=== PATIENT | male | born 1940 | race Caucasian/White ===

== ENCOUNTER → 2017-02-27 | Outpatient (CLI) | payer OTHER, MEDICARE ==
[~2017-02-27] MED LIST: ALBUTEROL SULF8.5 GM IH; ANTIVERT25 MG PO; ASCORBIC ACID500 M3 PO; ASPIR-LOW81 M1 PO; ASPIR-LOW81 MG PO; AVELOX400 MG; AVODART0.5 MG PO; BACTRIM,SEPT1 TABLET PO; CLOPIDOGREL75 MG; CO Q-10100 MG PO; COLACE100 MG PO; COMBIVENT200 INHALA; COUMADIN2 MG PO; COUMADIN5 MG PO; CRESTOR5 MG PO; CYANOCOBALAM1000 MCG PO; DIOVAN320 MG; DIOVAN320 MG PO; ERGOCALCIF50000 UNIT PO; FLAGYL500 MG PO; FLOMAX0.4 MG PO; FOLIC ACID1 MG PO; FUROSEMIDE20 MG PO; GABAPENTIN300 MG PO; GABAPENTIN400 MG PO; GABAPENTIN600 MG PO; GLIPIZIDE; GLIPIZIDE10 MG PO; GLUCOTROL XL2.5 MG PO; HYDROCHLOROTHIA25 MG; HYDROCHLOROTHIA25 MG PO; HYDROCODONE-CH473 ML; IMODIUM MS REL1 EACH PO; JANUVIA100 MG PO; KEFLEX500 MG PO; LEVOFLOXACIN750 MG PO; LIDOCAINE700 MG TD; LISINOPRIL5 MG; LISINOPRIL5 MG PO; LIVALO2 MG PO; LOPRESSOR50 MG PO; LOVENOX100 MG/1 M SC; MEN'S MULTI-VI1 EACH PO; METOPROLOL TART25 MG PO; METOPROLOL TART50 MG; MULTIPLE VITAM1 EAC1 PO; MULTIVITAMIN1 EAC2 PO; NITROSTAT0.4 MG; NITROSTAT0.4 MG SL; NOVOLOG100 UNIT/1 SC; OXYCODONE HCL10 MG PO; OXYCODONE HCL15 MG PO; OXYCODONE HCL5 MG; OXYCODONE HCL5 MG PO; PLAVIX75 MG PO; PREDNISONE50 MG PO; PRINIVIL5 MG PO; ROLAIDS PO; ROXICODONE15 MG PO; SENNA-EXTRA17.2 MG PO; TESSALON PERLE100 MG PO; TOPROL XL25 MG PO; TRICOR145 MG PO; VITAMIN B-6100 MG PO; XARELTO20 MG PO; ZITHROMAX Z-PA250 MG PO
== END | disposition home or self-care (01) ==
LOC: AMB 12:17
PROC: 0HJPXZZ Inspection of Skin, External Approach (ICD-10-PCS; principal; 2017-02-27)
DX: Z48.817 Encounter for surgical aftercare following surgery on the skin and subcutaneous tissue (principal); D04.61 Carcinoma in situ of skin of right upper limb, including shoulder; C44.612 Basal cell carcinoma of skin of right upper limb, including shoulder; L57.0 Actinic keratosis
CPT/HCPCS: 99212

== ENCOUNTER 2018-02-25 17:34 | Emergency (ER) | payer OTHER, MEDICARE ==
[~2018-02-25] VITALS: Ht 165.1 cm; Wt 100.0 kg
[2018-02-25 20:25] LABS: HEMATOCRIT 41.8 % (38.0-50.0); HEMOGLOBIN 15.1 G/DL (12.5-16.6); MCH 35.1 PG (29.0-34.0); MCHC 36.1 G/DL (30.0-36.0); MCV 97.2 FL (86-99); PLATELET COUNT 67 K/uL (156-360); RBC DIS.WIDTH-CV 15.7 % (11.8-14.6); RBC DIS.WIDTH-SD 55.8 % (39-53); WHITE BLOOD COUNT 7.4 K/uL (4.1-10.2)
[2018-02-25 20:33] LABS: ALBUMIN 3.4 g/dL (3.2-4.8)
[2018-02-25 20:34] LABS: CHLORIDE 100 mEq/L (99-109); SODIUM 137 mEq/L (136-147)
[2018-02-25 20:36] LABS: GLUCOSE 262 mg/dL (70-99); TOTAL PROTEIN 7.1 g/dL (6.4-8.3)
[2018-02-25 20:37] LABS: POTASSIUM 3.9 mEq/L (3.7-5.4)
[2018-02-25 20:38] LABS: TOTAL BILIRUBIN 2.1 mg/dL (0.0-1.0)
[2018-02-25 20:39] LABS: ALKALINE PHOSPHATASE 138 IU/L (3-129)
[2018-02-25 20:40] LABS: CREATININE 0.8 mg/dL (0.6-1.3); GFR ESTIMATE (CALCULATED) > 59 mL/min/ (58.99-99999)
[2018-02-25 20:41] LABS: AST (GOT) 72 IU/L (2-34); UREA NITROGEN (BUN) 9 mg/dL (9-23)
[2018-02-25 20:43] LABS: ALT (GPT) 30 IU/L (3-49)
[2018-02-25 21:00] LABS: APPEARANCE CLEAR ((CLEAR)); BILIRUBIN NEGATIVE; BLOOD MODERATE; COLOR YELLOW ((YELLOW)); GLUCOSE (STRIP) >=500; KETONES NEGATIVE; LEUKOCYTES NEGATIVE; NITRITE NEGATIVE; PROTEIN (STRIP) NEGATIVE; SPECIFIC GRAVITY 1.011 (1.000-1.030)
[2018-02-25 21:08] LABS: BACTERIA NONE SEEN /HPF; EPITHELIAL CELLS NONE SEEN /HPF; MUCUS NONE SEEN /LPF; RED BLOOD CELLS 0-5 /HPF (0-5); UCUL ADDED? NO; WHITE BLOOD CELLS 0-5 /HPF (0-5)
[2018-02-25 22:02] LABS: LIPASE 67 U/L (1.0-51.0)
[2018-02-26 00:16] VITALS: BP 142/81
== END 2018-02-26 00:17 | disposition home or self-care (01) ==
LOC: EME 17:34
PROVIDERS: Physician Assistant
DX: R41.0 Disorientation, unspecified (principal); K80.20 Calculus of gallbladder without cholecystitis without obstruction; J20.9 Acute bronchitis, unspecified; J44.0 Chronic obstructive pulmonary disease with (acute) lower respiratory infection; M79.604 Pain in right leg; M79.89 Other specified soft tissue disorders; I10 Essential (primary) hypertension; E11.9 Type 2 diabetes mellitus without complications; E78.5 Hyperlipidemia, unspecified; F32.9 Major depressive disorder, single episode, unspecified; F41.9 Anxiety disorder, unspecified; I25.2 Old myocardial infarction; Z95.1 Presence of aortocoronary bypass graft; Z85.828 Personal history of other malignant neoplasm of skin; Z87.891 Personal history of nicotine dependence; Z79.84 Long term (current) use of oral hypoglycemic drugs; Z88.6 Allergy status to analgesic agent; Z88.8 Allergy status to other drugs, medicaments and biological substances; Z91.041 Radiographic dye allergy status; Z91.040 Latex allergy status
CPT/HCPCS: 70450; 71046; 76705; 80053; 81003; 83690; 83880; 85027; 93005; 93971; 99281; 99285

== ENCOUNTER 2018-05-29 16:05 | Emergency (ER) | payer OTHER, MEDICARE ==
[~2018-05-29] VITALS: Ht 167.6 cm; Wt 96.8 kg
[2018-05-29 17:10] LABS: BASOPHIL (%) 0.7 % (0-1); BASOPHIL COUNT 0.1 K/uL (0-0.1); EOSINOPHIL (%) 2.2 % (0-5); EOSINOPHIL COUNT 0.2 K/uL (0-0.3); HEMATOCRIT 41.3 % (38.0-50.0); HEMOGLOBIN 14.8 G/DL (12.5-16.6); IMMATURE GRANULOCYTE (%) 0.8 % (0.0-0.7); LYMPHOCYTE (%) 20.9 % (15-42); LYMPHOCYTE COUNT 1.6 K/uL (1.0-2.8); MCH 34.5 PG (29.0-34.0); MCHC 35.8 G/DL (30.0-36.0); MCV 96.3 FL (86-99); MONOCYTE (%) 15.5 % (3-12); MONOCYTE COUNT 1.2 K/uL (0-0.8); NEUTROPHIL (%) 59.9 % (45-76); NEUTROPHIL COUNT 4.5 K/uL (1.8-6.4); PLATELET COUNT 57 K/uL (156-360); RBC DIS.WIDTH-CV 15.7 % (11.8-14.6); RBC DIS.WIDTH-SD 55.8 % (39-53); RED BLOOD COUNT 4.29 M/uL (4.00-5.50); WHITE BLOOD COUNT 7.6 K/uL (4.1-10.2)
[2018-05-29 17:14] LABS: INTER. NORMALIZED RATIO 1.5
[2018-05-29 17:17] LABS: PTT 35.9 SEC (25-37)
[2018-05-29 17:19] LABS: CHLORIDE 101 mEq/L (99-109); POTASSIUM 3.2 mEq/L (3.7-5.4); SODIUM 141 mEq/L (136-147)
[2018-05-29 17:21] LABS: GLUCOSE 155 mg/dL (70-99)
[2018-05-29 17:24] LABS: CREATININE 0.7 mg/dL (0.6-1.3); GFR ESTIMATE (CALCULATED) > 59 mL/min/ (58.99-99999)
[2018-05-29 17:25] LABS: UREA NITROGEN (BUN) 9 mg/dL (9-23)
[2018-05-29 17:30] LABS: TROP-I INTERPRETATION NEGATIVE; TROPONIN-I 0.01 ng/mL (0.0-0.30)
[2018-05-29 22:00] VITALS: BP 172/107
== END 2018-05-29 22:00 | disposition home or self-care (01) ==
LOC: EME 16:05
PROVIDERS: Emergency Medicine
DX: R06.02 Shortness of breath (principal); I10 Essential (primary) hypertension; E78.5 Hyperlipidemia, unspecified; E11.9 Type 2 diabetes mellitus without complications; J43.9 Emphysema, unspecified; F41.9 Anxiety disorder, unspecified; F32.9 Major depressive disorder, single episode, unspecified; Z85.828 Personal history of other malignant neoplasm of skin; Z89.612 Acquired absence of left leg above knee; Z87.891 Personal history of nicotine dependence; Z95.1 Presence of aortocoronary bypass graft; I25.2 Old myocardial infarction; Z88.6 Allergy status to analgesic agent; Z88.8 Allergy status to other drugs, medicaments and biological substances; Z91.040 Latex allergy status
CPT/HCPCS: 71045; 71275; 80048; 82948; 83880; 84484; 85025; 85610; 85730; 93005; 99281; 99285; J1200; J2930; J3010